=== PATIENT | female | born 1995 | race Two or more races ===

== ENCOUNTER 2024-10-26 04:56 | Emergency (ER) | payer MEDICAID, SELFPAY ==
[2024-10-26 04:57] VITALS: BMI 25.3
[2024-10-26 05:25] VITALS: BP 118/82; PULSE 117; RESP 20; TEMP 37.2; O2SAT 98
--- NOTE | 2024-10-26 05:35 | PD.EDRME ---
Rapid Medical Screening Exam RME Arrival date/time: 10/26/24 04:56 29-year-old female past medical history of cholecystectomy presents emergency department complaining of diffuse abdominal pain with nausea and vomiting that started 11 PM last night. Chief Complaint: Nausea/Vomiting/Diarrhea Time Seen by Provider: 10/26/24 05:32 Vital signs: Vital Signs Temperature 98.9 F 10/26/24 05:25 Pulse Rate 117 H 10/26/24 05:25 Respiratory Rate 20 10/26/24 05:25 Blood Pressure 118/82 10/26/24 05:25 Pulse Oximetry (%) 98 10/26/24 05:25 Oxygen Delivery Method Room Air 10/26/24 05:25 Vital signs reviewed by provider: Yes
[2024-10-26] MEDS: ONDANSETRON ODT 4 MG TABRAP PO (06:00)
[2024-10-26 07:14] LABS: Basophils % (Auto) 0 % (0-2.5); Eosinophils % (Auto) 0 % (0-10); Hematocrit 42.1 % (36.0-46.0); Hemoglobin 14.6 g/dL (12.0-16.0); Immature Granulocytes % (Auto) 0 % (0-0); Immature Granulocytes Auto 0.03 Thou/mm3 (0.00-0.00); Lymphocytes # (Auto) 0.6 Thou/mm3 (1.0-4.8); Lymphocytes % (Auto) 5 % (10-50); Mean Corpuscular HGB Conc 34.7 g/dl (31.0-37.0); Mean Corpuscular Hemoglobin 29.5 pg (25.0-35.0); Mean Corpuscular Volume 85 fL (80-100); Monocytes # (Auto) 0.3 Thou/mm3 (0.0-0.8); Monocytes % (Auto) 2 % (0-12); Neutrophils # (Auto) 12.5 Thou/mm3 (1.8-7.7); Neutrophils % (Auto) 93 % (37-80); Nucleated Red Blood Cell % 0 /100 WBC (0); Platelet Count 240 Thou/mm3 (140-440); RDW Standard Deviation 40.9 fL (36.4-46.3); Red Blood Count 4.95 Miln/mm3 (4.00-5.20); White Blood Count 13.5 Thou/mm3 (3.6-11.0)
[2024-10-26 07:33] LABS: Alanine Aminotransferase 18 U/L (10-49); Albumin/Globulin Ratio 1.9 (1.2-2.2); Alkaline Phosphatase 63 U/L (46-116); Anion Gap 9 (7-16); Aspartate Amino Transferase 21 U/L (0-34); BUN/Creatinine Ratio 19 Ratio (12-20); Bilirubin,Total 0.9 mg/dL (0.3-1.2); Blood Urea Nitrogen 13 mg/dL (9-23); Calcium 9.2 mg/dL (8.3-10.6); Calcium (Corrected) 9.2 mg/dL (8.5-10.1); Carbon Dioxide 25.2 mMol/L (20.0-31.0); Chloride 107 mMol/L (98-107); Creatinine (Component) 0.7 mg/dL (0.6-1.3); Estimated Creatinine Clearance 98.3 mL/min (>60); Globulin 2.6 gm/dL (2.3-3.5); Glucose 113 mg/dL (74-106); Lipase 37 U/L (12-53); Osmolality,Calculated 282 (275-295); Potassium 4.2 mMol/L (3.4-5.1); Sodium 141 mMol/L (136-145); Total Protein 7.6 gm/dL (5.7-8.2); eGFR > 60 See Note
[2024-10-26 07:34] LABS: HCG,Qualitative Serum Negative
--- NOTE | 2024-10-26 10:06 | PC.NURSE ---
pt in room states that n/v 2300 has not been able to keep anything down, describes more of bile, not sure cause it happened of quick onset, pain in abd only with vomiting.
[2024-10-26 10:33] VITALS: BP 115/82; PULSE 92; RESP 19; TEMP 37.7; O2SAT 99
--- NOTE | 2024-10-26 11:01 | PD.EDNV ---
Nausea/Vomit./Diarrhea-RME/HPI General Chief complaint: Nausea/Vomiting/Diarrhea Stated complaint: vominting Time Seen by Provider: 10/26/24 05:32 Arrival date/time: 10/26/24 04:56 29 year old female present to emergency room with c/o of nausea,vomiting and abdominal pain since 11pm last night LOCATION: generalized throughout the entire abdomen SEVERITY: Symptoms are described as being severe with limitations on activities of daily living QUALITY: Symptoms are described as being cramping CONTEXT: The patient is unable to identify any inciting events. DURATION/TIMING: The symptoms started approximately one day ago and have been waxing/waning but always present without ever completely resolving. ASSOCIATED SYMPTOMS: nausea and vomiting ( x10 ) MODIFYING FACTORS: The patient is unable to identify any alleviating or aggravating symptoms. PERTINENT ROS: no fevers, no anorexia, no chest pain, shortness of breath, no dizziness, syncope, no uti sx, no pelvic/back pain, no diarrhea, no ripping or tearing sensations, no syncope or presyncopal symptoms, denies trauma, denies genital pain REVIEW OF SYSTEMS: See History of Present Illness - with the exception of those mentioned in the history of present illness, all other systems reviewed and reported as negative GENERAL: In general the patient is awake, interactive, in an emergency department gurney. HEAD/EYES/EARS/NOSE/THROAT: normo-cephalic, atraumatic, mucus membranes are moist, anicteric, palpebral conjunctiva is pink, trachea is midline. CARDIOVASCULAR: regular rate and regular rhythm, no murmurs, heart sounds are not distant, strong pulses in all four extremities that are equal and symmetric bilateral upper and lower extremities, normal capillary refill. CHEST/PULMONARY: normal chest rise and fall, good air movement, clear to auscultation bilaterally, normal inspiratory to expiratory ratios without evidence of respiratory distress. NECK: No midline/Paraspinal tenderness, no step off ROM/Strenght intact No Kernig and bruzinski sign. No trauma ABDOMEN: soft, generalized abdominal tenderness, no flank tenderness , no masses appreciated BACK: normal range of motion without pain. NEUROLOGICAL: cranio-facial features are symmetric, moves all four extremities equally without obvious limitations or weakness. EXTREMITY: no tenderness to palpation over the long bones or large joints of the bilateral upper and lower extremities, no joint swelling, no joint erythema, no signs of trauma, no unilateral leg swelling and no peripheral edema. SKIN: warm, dry, well-perfused, no jaundice, no rash, no telangiectasias or petechia. PSYCH: calm, cooperative, no evidence of psychosis or agitation RME / HPI RME / HPI Narrative: 10/26/24 04:56 29-year-old female past medical history of cholecystectomy presents emergency department complaining of diffuse abdominal pain with nausea and vomiting that started 11 PM last night. Related Data Home Medications ?Medication ?Instructions ?Recorded ?Confirmed vit no.95-ferrous 1 tab PO DAILY 10/22/22 02/20/23 fumarate 28 mg-folic acid 800 mcg tablet () Previous Rx's ?Medication ?Instructions ?Recorded hydrocodone 5 mg-acetaminophen 325 1 tab PO Q6H PRN pain #16 tabs 08/09/23 mg tablet ketorolac 10 mg tablet 10 mg PO BID PRN pain #30 tabs 09/04/23 Allergies Allergy/AdvReac Type Severity Reaction Status Date / Time No Known Allergies Allergy Verified 10/26/24 05:03 Course Course Course Narrative: Patient?s symptoms not typical for emergent causes of abdominal pain such as, but not limited to, appendicitis, abdominal aortic aneurysm, surgical biliary disease, pancreatitis, SBO, mesenteric ischemia, serious intra-abdominal bacterial illness. Presentation also not typical of gynecologic emergencies such as?TOA, Ovarian Torsion, PID. Not Ectopic. Doubt atypical ACS. Pt tolerating PO. Disposition: Patient will be discharged with strict return precautions and follow up with primary MD within 12-24 hours for further evaluation. Patient understands that this still may have an early presentation of an emergent medical condition such as appendicitis that will require a recheck. Quality Measures none Orders Category Date Time Status US abdomen limited Stat Exams 10/26/24 11:30 Completed CBC Stat Lab 10/26/24 06:58 Completed CMP [Comprehensive Metabolic Panel] Stat Lab 10/26/24 06:58 Completed Drug Screen,Urine Stat Lab 10/26/24 11:06 Completed HCG,Qualitative Serum Stat Lab 10/26/24 06:58 Completed Lipase Stat Lab 10/26/24 06:58 Completed Urinalysis, C/S if Indicated Stat Lab 10/26/24 11:06 Completed Ketorolac Inj [Toradol Inj] Med 10/26/24 11:30 Discontinued 30 mg IVP X1 ONE Ondansetron Odt [Zofran Odt] Med 10/26/24 05:35 Discontinued 4 mg PO X1 ONE Sodium Chloride 0.9% 1000 ml [Ns] 1,000 ml Med 10/26/24 11:30 Discontinued IV 999 mls/hr Vital Signs Vital signs: Vital Signs Temperature 98.9 F 10/26/24 05:25 Pulse Rate 117 H 10/26/24 05:25 Respiratory Rate 20 10/26/24 05:25 Blood Pressure 118/82 10/26/24 05:25 Pulse Oximetry (%) 98 10/26/24 05:25 Oxygen Delivery Method Room Air 10/26/24 05:25 Nausea/Vomiting/Diarrhea Patient data External records reviewed:: [facility] previous records Clinical information provided by:: none Social determinants that could affect healthcare access:: none Patient has the following chronic illnesses:: gastritis, gallstones, How is presenting disease/condition affected by chronic disease/condition?: exacerbated by Evaluation data The following diagnostics were reviewed and interpreted by me:: lab results and radiology exam(s) Lab and/or radiology exams considered but not ordered:: none Interpretation Summary: cbc/cmp no acute findings us: Absent gallbladder Normal common bile duct 0.3 cm Pancreatic head 3.1 cm Liver 13 cm smooth contour no focal liver lesions Normal hepatopedal portal venous flow Patent IVC IMPRESSION: Absent gallbladder Normal common bile duct No liver lesions Medications / Prescriptions Medications / Prescriptions considered but not ordered:: none Medication administrations:: Medication Administration History Discontinued Medications Sodium Chloride (Ns) 1,000 mls @ 999 mls/hr IV .Q1H1M ONE Stop: 10/26/24 12:30 Last Infusion: 10/26/24 12:58 Dose: Infused Documented By: Admin: 10/26/24 11:46 Dose: 999 mls/hr Documented By: BD Ketorolac Tromethamine (Ketorolac Inj 30 Mg/Ml Vial) 30 mg IVP X1 ONE Stop: 10/26/24 11:31 Last Admin: 10/26/24 11:46 Dose: 30 mg Documented By: BD Ondansetron HCl (Ondansetron Odt 4 Mg Tabrap) 4 mg PO X1 ONE; Protocol Stop: 10/26/24 05:36 Last Admin: 10/26/24 06:00 Dose: 4 mg Documented By: KG as stated above Consultations Consultation(s) initiated? (list below): No Diagnosis Nausea Differential Diagnosis: traveler's diarrhea, food poisoning, gastroenteritis, dehydration and other (cbd stone, UTI) Most likely diagnosis given after review of the tests above:: abd pain Admission Indicated Admission indicated?: not indicated Admission Request Was there a request for admission?: No Disposition Plan Disposition Plan: Discharge Discharge Attestation Discharge Attestation: The patient and all family members were given an opportunity to ask questions and understood the discharge instructions. Discharge instructions specifically effects, indications for sooner follow up or return to the emergency department, and the expected course of current diagnosis. Patient condition: Stable Discharge Plan Plan Patient Disposition: HOME (Self Care) Health Concerns: Follow with PMD as directed Take tylenol or motrin as need Return to ED if sx worsen Prescriptions/Referrals Prescriptions/Med Rec: No Action PNV cmb#95-ferrous fumarate-FA [] 28 mg iron- 800 mcg tablet 1 tab PO DAILY hydrocodone-acetaminophen 5-325 mg tablet 1 tab PO Q6H MDD 4 tabs PRN (Reason: pain) Qty: 16 0RF ketorolac 10 mg tablet 10 mg PO BID PRN (Reason: pain) Qty: 30 0RF Referrals: Jewel Iglesias MD [Primary Care Provider] - In 1 week Problem List Clinical Impression: Abdominal pain Patient/Caregiver Discharge Instructions Education Materials: Abdominal Pain Print Language: Arabic Stand Alone Forms: Lilia Award Info., Patient Portal Info Letter
[2024-10-26 11:16] LABS: Collection Type, Urine Clean Catch
--- NOTE | 2024-10-26 11:30 | XR_ITS ---
Examination: Abdomen sonogram, Limited Date and time of exam: October 26, 2024 at 12:26 PM INDICATIONS: Epigastric pain nausea vomiting today Technique: Real-time lopez scale transabdominal sonographic images of the upper abdomen obtained. Findings: Absent gallbladder Normal common bile duct 0.3 cm Pancreatic head 3.1 cm Liver 13 cm smooth contour no focal liver lesions Normal hepatopedal portal venous flow Patent IVC IMPRESSION: Absent gallbladder Normal common bile duct No liver lesions
[2024-10-26 11:38] LABS: Amphetamine/Methamp Scrn,U Negative (Negative); Barbiturate Screen,Urine Negative (Negative); Benzodiazepines Screen,Urine Negative (Negative); Benzoylecgonine Screen, Ur Negative (Negative); Fentanyl Screen,Urine Negative (Negative); Opiate Screen,Urine Negative (Negative); THC Screen,Urine Negative (Negative)
[2024-10-26] MEDS: KETOROLAC INJ 30 MG/ML VIAL IVP (11:46)
[2024-10-26] MEDS: SODIUM CHLORIDE 0.9% 1000 ML 1,000 ML 999 ML IV (11:46)
[2024-10-26 11:51] LABS: Bilirubin,Urine Negative (Negative); Blood,Urine Negative (Negative); Clarity,Urine Clear (Clear/Hazy); Color,Urine Lt-Yellow (Lt Yel-Yel); Culture Indicated,Urine Not Indicated; Glucose, Urine Negative (Negative); Ketones,Urine Trace (Negative); Leukocyte Esterase,Urine Negative (Negative); Nitrite,Urine Negative (Negative); PH,Urine 6.5 (5.0-7.0); Protein,Urine Trace (Neg - Trace); RBC,Urine < 1 /hpf (0-3); Squamous Epithelial Cell,Urine 1 /hpf (0-5); Urobilinogen,Urine Negative mg/dL (0.0-1.0); WBC,Urine < 1 /hpf (0-5)
[2024-10-26 12:15] VITALS: BP 106/72; PULSE 98; RESP 19; TEMP 37.7; O2SAT 98
[2024-10-26 13:27] VITALS: BP 110/73; PULSE 91; RESP 16; TEMP 36.8; O2SAT 99
== END 2024-10-26 13:35 | disposition home or self-care (01) ==
PROVIDERS: Emergency Provider Emergency Medicine; PCP Family Medicine
DX: R10.84 Generalized abdominal pain (principal)
CPT/HCPCS: 36415; 76705; 80053; 80307; 81001; 83690; 84703; 85025; 96361; 96374; J1885; J7030; Q0162